=== PATIENT | male | born 1965 | race Caucasian/White ===

== ENCOUNTER 2017-06-01 14:04 | Inpatient (IN) | payer BC ==
[2017-06-01] MEDS ORDERED: HYDROCHLOROTHIAZIDE 25 MG TAB PO (16:30)
[2017-06-01 16:52] LABS: ADD MAN DIFF? NO
[2017-06-01] MEDS: SOD CHLORIDE 0.9% 1,000 ML IV ×2 (16:53→22:55)
[2017-06-01 16:56] LABS: WHITE BLOOD COUNT 7.6 10^3/ul (4.8-10.8)
[2017-06-01 16:56] LABS: BASOPHIL # 0.1 10^3/ul (0.0-0.1); EOSINOPHILS # 0.3 10^3/ul (0.0-0.5); EOSINOPHILS % 3.4 % (0.0-7.0); HEMATOCRIT 43.3 % (42.0-52.0); HEMOGLOBIN 14.2 g/dl (14.0-18.0); LYMPHOCYTES % 26.2 % (15.0-51.0); MEAN CORPUSCULAR HEMOGLOBIN 29.1 pg (29.0-33.0); MEAN CORPUSCULAR HGB CONC 32.8 g/dl (32.0-37.0); MEAN CORPUSCULAR VOLUME 88.7 fl (82.0-101.0); MEAN PLATELET VOLUME 9.7 fl (7.4-10.4); MONOCYTE # 0.8 10^3/ul (0.3-0.9); MONOCYTES % 10.2 % (0.0-11.0); NEUTROPHIL # 4.5 10^3/ul (1.6-7.5); NEUTROPHILS % 58.5 % (39.0-77.0); PLATELET COUNT 249 10^3/UL (140-415); RED BLOOD COUNT 4.88 10^6/ul (4.70-6.10); RED CELL DISTRIBUTION WIDTH 13.2 % (11.5-14.5)
[2017-06-01 17:11] LABS: PROTIME 13.3 Sec (11.9-14.9)
[2017-06-01 17:17] LABS: ALANINE AMINOTRANSFERASE 45 IU/L (13-69); ALBUMIN 3.8 g/dl (3.3-4.9); ALBUMIN/GLOBULIN RATIO 1.58; ALKALINE PHOSPHATASE 59 IU/L (42-121); ANION GAP 13 (8-16); ASPARTATE AMINO TRANSFERASE 26 IU/L (15-46); BILIRUBIN,INDIRECT 0.2 mg/dl (0-1.1); BILIRUBIN,TOTAL 0.2 mg/dl (0.2-1.3); BLOOD UREA NITROGEN 15 mg/dl (7-20); CALCIUM 9.2 mg/dl (8.4-10.2); CARBON DIOXIDE 26 mmol/L (21-31); CHLORIDE 105 mmol/L (97-110); CREATININE 1.26 mg/dl (0.61-1.24); GLUCOSE 85 mg/dl (70-220); LIPASE 87 U/L (23-300); POTASSIUM 4.5 mmol/L (3.5-5.1); SODIUM 139 mmol/L (135-144); TOTAL PROTEIN 6.2 g/dl (6.1-8.1)
[2017-06-01 17:28] LABS: B-TYPE NATRIURETIC PEPTIDE 227 PG/ML (0-125)
[2017-06-01 17:33] LABS: URINE PH (Dip) POC 7.5 (5.0-8.5)
[2017-06-01 17:33] LABS: URINE BLOOD (Dip) POC Negative (NEGATIVE); URINE GLUCOSE (Dip) POC Negative (NEGATIVE); URINE KETONES (Dip) POC Negative (NEGATIVE); URINE LEUKOCYTE EST (Dip) POC Negative (NEGATIVE); URINE NITRITE (Dip) POC Negative (NEGATIVE); URINE TOTAL PROTEIN POC Negative (NEGATIVE)
[2017-06-01 17:37] LABS: TROPONIN-I < 0.012 ng/ml (0.00-0.12)
[2017-06-01 17:50] LABS: ADD UMIC NO; UR ASCORBIC ACID NEGATIVE (NEGATIVE); UR BILIRUBIN (Dip) NEGATIVE (NEGATIVE); UR BLOOD (Dip) NEGATIVE (NEGATIVE); UR CLARITY CLEAR (CLEAR); UR COLOR STRAW (YELLOW); UR GLUCOSE (Dip) NEGATIVE (NEGATIVE); UR KETONES (Dip) NEGATIVE (NEGATIVE); UR LEUKOCYTE ESTERASE (Dip) NEGATIVE Leu/ul (NEGATIVE); UR NITRITE (Dip) NEGATIVE (NEGATIVE); UR SPECIFIC GRAVITY (Dip) 1.008 (1.003-1.030); UR TOTAL PROTEIN (Dip) NEGATIVE (NEGATIVE); UR UROBILINOGEN (Dip) NEGATIVE (NEGATIVE)
[2017-06-01] MEDS: ONDANSETRON 4 MG INJ IV (18:54)
[2017-06-01] MEDS: morphine 4 MG/ML VIAL IV (18:54)
[2017-06-01] MEDS: IODIXANOL LOCM 100 ML BTL (18:59)
[2017-06-01] MEDS: SOD CHLORIDE 0.9% 100 ML (18:59)
[2017-06-01] MEDS ORDERED: ACETAMINOPHEN 325 MG TAB PO (21:30)
[2017-06-01] MEDS ORDERED: ZOLPIDEM 5 MG TAB PO (21:30)
[2017-06-01] MEDS ORDERED: [UNRECOGNIZED DRUG - OTHER] PO (21:30)
[2017-06-01] MEDS ORDERED: BUSPIRONE 10 MG TAB PO (21:30)
[2017-06-01] MEDS ORDERED: NACL 0.9% 3 ML SYG IV (21:30)
[2017-06-01] MEDS ORDERED: DOCUSATE SODIUM 100 MG CAP PO (21:30)
[2017-06-01] MEDS: RANOLAZINE (SR) 500 MG TAB PO (22:49)
[2017-06-01] MEDS: APIXABAN 5 MG TABLET PO (22:49)
[2017-06-01] MEDS: clonAZEPAM 0.5 MG TAB PO (23:44)
[2017-06-02] MEDS: PREGABALIN 75 MG CAP PO ×4 (01:23→20:52)
[2017-06-02] MEDS: METHOCARBAMOL 500 MG TAB PO ×2 (01:25→10:21)
[2017-06-02] MEDS: morphine 2 MG INJ IV ×5 (04:32→23:22)
[2017-06-02] MEDS: ONDANSETRON 4 MG INJ IV ×2 (04:32→18:58)
[2017-06-02 06:21] LABS: ADD MAN DIFF? NO
[2017-06-02 06:34] LABS: WHITE BLOOD COUNT 6.5 10^3/ul (4.8-10.8)
[2017-06-02 06:34] LABS: BASOPHIL # 0.1 10^3/ul (0.0-0.1); BASOPHILS % 1.4 % (0.0-2.0); EOSINOPHILS # 0.3 10^3/ul (0.0-0.5); EOSINOPHILS % 4.3 % (0.0-7.0); HEMOGLOBIN 13.3 g/dl (14.0-18.0); LYMPHOCYTES # 2.5 10^3/ul (0.8-2.9); LYMPHOCYTES % 37.5 % (15.0-51.0); MEAN CORPUSCULAR HGB CONC 33.3 g/dl (32.0-37.0); MEAN CORPUSCULAR VOLUME 90.1 fl (82.0-101.0); MEAN PLATELET VOLUME 9.8 fl (7.4-10.4); MONOCYTE # 0.7 10^3/ul (0.3-0.9); NEUTROPHILS % 46.2 % (39.0-77.0); PLATELET COUNT 212 10^3/UL (140-415); RED BLOOD COUNT 4.44 10^6/ul (4.70-6.10); RED CELL DISTRIBUTION WIDTH 13.4 % (11.5-14.5)
[2017-06-02 07:14] LABS: ANION GAP 14 (8-16); BLOOD UREA NITROGEN 19 mg/dl (7-20); CALCIUM 8.9 mg/dl (8.4-10.2); CARBON DIOXIDE 30 mmol/L (21-31); CHLORIDE 106 mmol/L (97-110); CREATININE 1.34 mg/dl (0.61-1.24); GLUCOSE 88 mg/dl (70-220); MAGNESIUM 1.9 mg/dl (1.7-2.5); PHOSPHORUS 5.4 mg/dl (2.5-4.9); POTASSIUM 4.4 mmol/L (3.5-5.1); SODIUM 146 mmol/L (135-144)
[2017-06-02] MEDS ORDERED: CYANOCOBALAMIN PO (09:00)
[2017-06-02] MEDS ORDERED: PREGABALIN 75 MG CAP PO (09:00)
[2017-06-02 09:23] LABS: LIPASE 60 U/L (23-300)
[2017-06-02 09:23] LABS: AMYLASE 63 U/L (11-123)
[2017-06-02] MEDS: RANOLAZINE (SR) 500 MG TAB PO ×2 (10:19→22:25)
[2017-06-02] MEDS: BUPROPION (XL) 150 MG TAB PO (10:19)
[2017-06-02] MEDS: ASPIRIN (EC) 81 MG TAB PO (10:20)
[2017-06-02] MEDS: CYANOCOBALAMIN 500 MCG TAB PO (10:20)
[2017-06-02] MEDS: APIXABAN 5 MG TABLET PO ×2 (10:21→20:52)
[2017-06-02] MEDS: ASCORBIC ACID 500 MG TAB PO (11:55)
[2017-06-02] MEDS: PANTOPRAZOLE 40 MG INJ IV ×2 (12:04→18:25)
[2017-06-02] MEDS: METOCLOPRAMIDE 10 MG INJ IV ×3 (12:12→23:23)
[2017-06-02 13:44] LABS: B-TYPE NATRIURETIC PEPTIDE 225 PG/ML (0-125)
[2017-06-02 18:57] LABS: TROPONIN-I < 0.012 ng/ml (0.00-0.12)
[2017-06-02] MEDS ORDERED: clonAZEPAM 0.5 MG TAB PO (21:00)
[2017-06-02] MEDS: clonAZEPAM 0.5 MG TAB PO (22:25)
[2017-06-03 01:28] LABS: TROPONIN-I < 0.012 ng/ml (0.00-0.12)
[2017-06-03] MEDS: PANTOPRAZOLE 40 MG INJ IV (05:33)
[2017-06-03] MEDS: METOCLOPRAMIDE 10 MG INJ IV (05:34)
[2017-06-03 06:19] LABS: ADD MAN DIFF? NO
[2017-06-03 06:36] LABS: BASOPHIL # 0.1 10^3/ul (0.0-0.1); BASOPHILS % 1.2 % (0.0-2.0); EOSINOPHILS # 0.3 10^3/ul (0.0-0.5); EOSINOPHILS % 5.1 % (0.0-7.0); HEMATOCRIT 42.8 % (42.0-52.0); HEMOGLOBIN 13.8 g/dl (14.0-18.0); LYMPHOCYTES # 1.9 10^3/ul (0.8-2.9); LYMPHOCYTES % 30.7 % (15.0-51.0); MEAN CORPUSCULAR HEMOGLOBIN 29.3 pg (29.0-33.0); MEAN CORPUSCULAR HGB CONC 32.2 g/dl (32.0-37.0); MEAN CORPUSCULAR VOLUME 90.9 fl (82.0-101.0); MEAN PLATELET VOLUME 9.9 fl (7.4-10.4); MONOCYTE # 0.7 10^3/ul (0.3-0.9); MONOCYTES % 10.8 % (0.0-11.0); NEUTROPHIL # 3.1 10^3/ul (1.6-7.5); NEUTROPHILS % 51.7 % (39.0-77.0); PLATELET COUNT 221 10^3/UL (140-415); RED BLOOD COUNT 4.71 10^6/ul (4.70-6.10); RED CELL DISTRIBUTION WIDTH 13.2 % (11.5-14.5)
[2017-06-03 07:04] LABS: ANION GAP 11 (8-16); BLOOD UREA NITROGEN 20 mg/dl (7-20); CALCIUM 8.8 mg/dl (8.4-10.2); CARBON DIOXIDE 28 mmol/L (21-31); CHLORIDE 106 mmol/L (97-110); CREATININE 1.32 mg/dl (0.61-1.24); GLUCOSE 102 mg/dl (70-220); MAGNESIUM 1.9 mg/dl (1.7-2.5); PHOSPHORUS 5.4 mg/dl (2.5-4.9); POTASSIUM 4.5 mmol/L (3.5-5.1); SODIUM 140 mmol/L (135-144)
[2017-06-03 07:07] LABS: TROPONIN-I < 0.012 ng/ml (0.00-0.12)
[2017-06-03 07:10] LABS: CHOL/HDL RATIO 4.8 RATIO; HDL CHOLESTEROL 36 mg/dl (28-71); LDL CHOLESTEROL,CALCULATED 110 mg/dl; TRIGLYCERIDES 137 mg/dl (0-149)
[2017-06-03 07:10] LABS: CHOLESTEROL 173 mg/dl (100-200)
[2017-06-03] MEDS: ASCORBIC ACID 500 MG TAB PO (08:34)
[2017-06-03] MEDS: CYANOCOBALAMIN 500 MCG TAB PO (08:34)
[2017-06-03] MEDS: APIXABAN 5 MG TABLET PO (08:34)
[2017-06-03] MEDS: ASPIRIN (EC) 81 MG TAB PO (08:34)
[2017-06-03] MEDS: RANOLAZINE (SR) 500 MG TAB PO (08:34)
[2017-06-03] MEDS: BUPROPION (XL) 150 MG TAB PO (08:34)
[2017-06-03] MEDS: PREGABALIN 75 MG CAP PO (09:26)
== END 2017-06-03 09:56 | disposition home or self-care (01) | DRG 392 ==
LOC: MS4 22:19 → E/R 14:04 → MS4 06-02 21:19 → MS3 20:19
DX: K21.9 Gastro-esophageal reflux disease without esophagitis (principal); E87.0 Hyperosmolality and hypernatremia; R07.89 Other chest pain; I25.2 Old myocardial infarction; I10 Essential (primary) hypertension; Z86.718 Personal history of other venous thrombosis and embolism; Z86.711 Personal history of pulmonary embolism; I25.10 Atherosclerotic heart disease of native coronary artery without angina pectoris; E11.9 Type 2 diabetes mellitus without complications; F17.200 Nicotine dependence, unspecified, uncomplicated; R00.1 Bradycardia, unspecified; N28.9 Disorder of kidney and ureter, unspecified; F41.9 Anxiety disorder, unspecified; F32.9 Major depressive disorder, single episode, unspecified
CPT/HCPCS: 36415; 71010; 71275; 80048; 80053; 80061; 81003; 82150; 83690; 83735; 83880; 84100; 84484; 85025; 85610; 87400; 93005; 93306; 93970; 96374; 96375; 99285-25

== ENCOUNTER 2017-11-14 07:24 | Day surgery (SDC) | payer BC ==
[2017-11-14 08:05] LABS: ADD MAN DIFF? NO
[2017-11-14 08:08] LABS: WHITE BLOOD COUNT 5.6 10^3/ul (4.8-10.8)
[2017-11-14 08:08] LABS: BASOPHIL # 0.1 10^3/ul (0.0-0.1); BASOPHILS % 1.6 % (0.0-2.0); EOSINOPHILS # 0.4 10^3/ul (0.0-0.5); EOSINOPHILS % 7.3 % (0.0-7.0); HEMATOCRIT 44.6 % (42.0-52.0); HEMOGLOBIN 14.3 g/dl (14.0-18.0); LYMPHOCYTES # 1.5 10^3/ul (0.8-2.9); LYMPHOCYTES % 25.9 % (15.0-51.0); MEAN CORPUSCULAR HEMOGLOBIN 29.1 pg (29.0-33.0); MEAN CORPUSCULAR HGB CONC 32.1 g/dl (32.0-37.0); MEAN CORPUSCULAR VOLUME 90.8 fl (82.0-101.0); MEAN PLATELET VOLUME 9.6 fl (7.4-10.4); MONOCYTE # 0.7 10^3/ul (0.3-0.9); MONOCYTES % 12.9 % (0.0-11.0); NEUTROPHIL # 2.9 10^3/ul (1.6-7.5); NEUTROPHILS % 51.9 % (39.0-77.0); PLATELET COUNT 222 10^3/UL (140-415); RED BLOOD COUNT 4.91 10^6/ul (4.70-6.10); RED CELL DISTRIBUTION WIDTH 12.6 % (11.5-14.5)
[2017-11-14 08:15] LABS: ADD UMIC NO; UR ASCORBIC ACID NEGATIVE (NEGATIVE); UR BILIRUBIN (Dip) NEGATIVE (NEGATIVE); UR BLOOD (Dip) NEGATIVE (NEGATIVE); UR CLARITY CLEAR (CLEAR); UR COLOR YELLOW (YELLOW); UR GLUCOSE (Dip) NEGATIVE (NEGATIVE); UR KETONES (Dip) NEGATIVE (NEGATIVE); UR LEUKOCYTE ESTERASE (Dip) NEGATIVE Leu/ul (NEGATIVE); UR NITRITE (Dip) NEGATIVE (NEGATIVE); UR SPECIFIC GRAVITY (Dip) 1.021 (1.003-1.030); UR TOTAL PROTEIN (Dip) NEGATIVE (NEGATIVE); UR UROBILINOGEN (Dip) NEGATIVE (NEGATIVE)
[2017-11-14 08:24] LABS: ANION GAP 9 (8-16); CARBON DIOXIDE 29 mmol/L (21-31); CHLORIDE 109 mmol/L (97-110); GLUCOSE 104 mg/dl (70-220)
[2017-11-14 08:27] LABS: BLOOD UREA NITROGEN 16 mg/dl (7-20); CREATININE 0.96 mg/dl (0.61-1.24); POTASSIUM 5.1 mmol/L (3.5-5.1); PROTIME 13.3 Sec (11.9-14.9); SODIUM 142 mmol/L (135-144)
[2017-11-14] MEDS ORDERED: FENTAnyl 50 MCG/ML VIAL (08:40)
[2017-11-14] MEDS ORDERED: LIDOCAINE 1% (MDV) 20 ML INJ (08:40)
[2017-11-14] MEDS ORDERED: MIDAZOLAM 1 MG/ML 2 ML INJ (08:40)
[2017-11-14] MEDS ORDERED: HEPARIN 1000 UNITS/NS (A-LINE) 1,000 ML (08:40)
[2017-11-14] MEDS ORDERED: IODIXANOL LOCM 100 ML BTL (09:22)
== END 2017-11-14 10:01 | disposition home or self-care (01) ==
LOC: SDS 07:24
DX: I82.402 Acute embolism and thrombosis of unspecified deep veins of left lower extremity (principal); I26.99 Other pulmonary embolism without acute cor pulmonale; I25.10 Atherosclerotic heart disease of native coronary artery without angina pectoris
CPT/HCPCS: 37193; 71045; 80048; 81003; 85025; 85610; 85730; 93005